=== PATIENT | female | born 2000 | race Caucasian/White ===

== ENCOUNTER → 2023-01-23 | Outpatient (CLI) | payer OTHER ==
--- NOTE | 2023-01-23 13:11 | US ---
EXAMINATION TYPE: US transvaginal DATE OF EXAM: 01/23/2023 COMPARISON: NONE CLINICAL INDICATION: Female, 22 years old with history of N94.6 DYSMENORRHEA, UNSPECIFIED; irregular periods, mother has hx of similar issues and polyps TECHNIQUE: Transvaginal (TV). Date of LMP: 01/09/23 EXAM MEASUREMENTS: Uterus: 5.0x2.9x4.2 cm Endometrial Stripe: 0.6 cm Right Ovary: 3.2x2.2x3.5 cm Left Ovary: 3.5x2.4x1.9 cm 1. Uterus: Anteverted possible mullerian anomaly (septate vs. other) 2. Endometrium: heterogenous with significant movement within throughout the exam 3. Right Ovary: polycystic appearance 4. Left Ovary: polycystic appearance 5. Bilateral Adnexa: wnl 6. Posterior cul-de-sac: wnl exam slightly limited due to patient difficulty relaxing and tenderness to transducer pressure IMPRESSION: 1. Trace complex fluid in the endometrial canal which may represent blood products. 2. 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 This can be further evaluated with MRI pelvis as clinically indicated. 3. Both ovaries are mildly prominent in size with multiple peripheral follicles which can be seen in the setting of polycystic ovarian syndrome.
== END | disposition home or self-care (01) ==
LOC: RADUSWWP 12:01
PROVIDERS: ATTEND Family Medicine
DX: E28.2 Polycystic ovarian syndrome (principal); N94.6 Dysmenorrhea, unspecified
CPT/HCPCS: 76830